=== PATIENT | female | born 1945 | race Caucasian/White ===

== ENCOUNTER 2017-05-30 18:42 | Inpatient (IN) ==
[2017-05-30 19:30] LABS: MANUAL DIFF NEEDED? NO
[2017-05-30 19:35] LABS: BASO% 0.1 % (0.0-0.8); EOS# 0.11 X1000 (0.0-0.7); EOS% 0.7 % (0.0-10.0); HEMATOCRIT 38.2 % (37.0-47.0); HEMOGLOBIN 12.7 g/dL (12.0-16.0); IMM GRAN# 0.03 X1000 (0.0-0.04); IMM GRAN% 0.2 % (0.0-0.5); LYMPH# 2.52 X1000 (1.2-3.4); LYMPH% 17.1 % (20.5-51.1); MCH 31.4 PG (27-31); MCHC 33.2 g/dL (33-37); MCV 94.6 FL (81-99); MONO# 1.32 X1000 (0.11-0.59); MONO% 8.9 % (1.7-9.3); MPV 10.3 FL (7.4-10.4); PLT 540 X1000 (130-400); RBC 4.04 XMIL (4.2-5.4)
[2017-05-30 19:43] LABS: PROTIME 10.5 Seconds (9.2-11.7); PTT 26.8 Seconds (22.0-36.0)
[2017-05-30 19:53] LABS: AGAP 14; ALBUMIN 3.8 g/dL (3.5-5.0); ALKALINE PHOSPHATASE 122 U/L (32-104); BUN 12 mg/dL (8-22); CALCIUM 9.7 mg/dL (8.8-10.2); CHLORIDE 99 mmol/L (98-107); CK PROFILE 31 U/L (24-173); COSMO 280; GOT 12 U/L (10-30); GPT 10 U/L (10-36); MAGNESIUM 2.1 mg/dL (1.5-2.7); POTASSIUM 4.7 mmol/L (3.5-5.1); SODIUM 140 mmol/L (136-145); TCO2 27 mmol/L (25-35); TOTAL BILIRUBIN 0.36 mg/dL (0.20-1.00); TOTAL PROTEIN 7.6 g/dL (6.3-8.3)
[2017-05-30] MEDS ORDERED: ZOFRAN PO ONE (22:30)
[2017-05-30] MEDS ORDERED: ZOFRAN ODT PO ONE (22:32)
[2017-05-31] MEDS ORDERED: ZOFRAN IV PRN (02:53)
[2017-05-31] MEDS ORDERED: NITROGLYCERIN SL PRN (02:53)
[2017-05-31] MEDS ORDERED: TYLENOL PO PRN (02:53)
[2017-05-31 04:23] LABS: MANUAL DIFF NEEDED? NO
[2017-05-31 04:33] LABS: BASO% 0.2 % (0.0-0.8); EOS# 0.09 X1000 (0.0-0.7); EOS% 0.7 % (0.0-10.0); HEMATOCRIT 34.2 % (37.0-47.0); HEMOGLOBIN 11.5 g/dL (12.0-16.0); IMM GRAN# 0.03 X1000 (0.0-0.04); IMM GRAN% 0.2 % (0.0-0.5); LYMPH# 3.23 X1000 (1.2-3.4); LYMPH% 24.8 % (20.5-51.1); MCH 31.7 PG (27-31); MCHC 33.6 g/dL (33-37); MCV 94.2 FL (81-99); MONO% 13.1 % (1.7-9.3); MPV 9.9 FL (7.4-10.4); PLT 484 X1000 (130-400); RBC 3.63 XMIL (4.2-5.4)
[2017-05-31] MEDS ORDERED: LOVENOX SUBQ SCH (06:00)
[2017-05-31] MEDS: PRILOSEC PO SCH (06:09)
[2017-05-31] MEDS ORDERED: COREG PO SCH (09:00)
[2017-05-31] MEDS ORDERED: NS 1,000 ML IV SCH (09:16)
[2017-05-31 10:15] LABS: AGAP 13; BUN 12 mg/dL (8-22); CHLORIDE 99 mmol/L (98-107); COSMO 279; POTASSIUM 4.7 mmol/L (3.5-5.1); SODIUM 140 mmol/L (136-145); TCO2 28 mmol/L (25-35)
[2017-05-31] MEDS: ASPIRIN PO SCH (13:56)
[2017-05-31] MEDS: COREG PO SCH ×2 (13:56→22:47)
[2017-05-31] MEDS: NORVASC PO SCH (13:56)
[2017-05-31] MEDS: LOVENOX SUBQ SCH (19:03)
[2017-05-31] MEDS: LIPITOR PO SCH (22:47)
[2017-05-31] MEDS: COZAAR PO SCH (22:47)
[2017-06-01] MEDS: LOVENOX SUBQ SCH ×2 (06:31→20:52)
[2017-06-01] MEDS: PRILOSEC PO SCH (06:31)
[2017-06-01] MEDS: NORVASC PO SCH (09:30)
[2017-06-01] MEDS: COREG PO SCH ×2 (09:30→20:51)
[2017-06-01] MEDS: ASPIRIN PO SCH (09:30)
[2017-06-01] MEDS: LIPITOR PO SCH (20:51)
[2017-06-01] MEDS: COZAAR PO SCH (20:51)
[2017-06-02] MEDS: LOVENOX SUBQ SCH ×2 (05:52→07:11)
[2017-06-02 06:47] LABS: MANUAL DIFF NEEDED? NO
[2017-06-02 06:58] LABS: BASO% 0.3 % (0.0-0.8); EOS# 0.18 X1000 (0.0-0.7); EOS% 1.9 % (0.0-10.0); HEMATOCRIT 33.4 % (37.0-47.0); HEMOGLOBIN 10.8 g/dL (12.0-16.0); IMM GRAN# 0.02 X1000 (0.0-0.04); IMM GRAN% 0.2 % (0.0-0.5); LYMPH# 3.54 X1000 (1.2-3.4); LYMPH% 37.3 % (20.5-51.1); MCH 30.9 PG (27-31); MCHC 32.3 g/dL (33-37); MCV 95.7 FL (81-99); MONO# 0.99 X1000 (0.11-0.59); MONO% 10.4 % (1.7-9.3); MPV 10.1 FL (7.4-10.4); NEUT% 49.9 % (42.2-75.2); PLT 545 X1000 (130-400); RBC 3.49 XMIL (4.2-5.4)
[2017-06-02] MEDS: PRILOSEC PO SCH (07:08)
[2017-06-02] MEDS: NORVASC PO SCH (07:09)
[2017-06-02] MEDS: COREG PO SCH (07:09)
[2017-06-02 07:22] LABS: AGAP 9; BUN 9 mg/dL (8-22); CALCIUM 8.8 mg/dL (8.8-10.2); CHLORIDE 105 mmol/L (98-107); COSMO 280; POTASSIUM 4.4 mmol/L (3.5-5.1); SODIUM 141 mmol/L (136-145); TCO2 27 mmol/L (25-35)
[2017-06-02 07:28] VITALS: BP 145/61
== END 2017-06-02 08:21 | disposition short-term general hospital (02) ==
LOC: ED 18:42 → 3N 05-31 00:05 → SUATTDRO 05-31 00:05
PROVIDERS: ADMIT Internal Medicine; ATTEND Internal Medicine